=== PATIENT | female | born 1960 | race Caucasian/White ===

== ENCOUNTER 2021-11-28 16:23 | Emergency (ER) | payer MEDICAID, OTHER ==
--- NOTE | 2021-11-28 16:38 | ED Physician Documentation ---
PD HPI CHEST PAIN - Stated complaint Stated Complaint: CHEST PX - Chief complaint Chief Complaint: Cardiac - History obtained from History obtained from: Patient - History of Present Illness Timing - onset: Today, Last night Timing - onset during: Rest, Light activity Timing - duration: Days (1) Timing - details: Gradual onset, Still present, Waxing and waning Quality: Tightness, Aching (not in chest but just right side jaw and shoulder.) Location: Right shoulder/arm, Right neck. No: Substernal Radiation: Neck Improved by: No: Rest Worsened by: No: Exertion (occurring intermittently without exertional provocation.), Inspiration, Eating, Movement Associated symptoms: Shortness of air. No: Nausea, Feeling faint / dizzy, Palpitations Similar symptoms before: Diagnosis (She states symptoms are similar to her heart attack before getting a stent placed 1-1/2 years ago.) Recently seen: Not recently seen (She states she has not had recent visits to her primary care. She is relocating here from [place]. Her previous care was at [facility] there.) Review of Systems Constitutional: denies: Fever, Chills Nose: denies: Rhinorrhea / runny nose, Congestion Throat: denies: Sore throat Cardiac: denies: Palpitations, Pedal edema, Calf pain Respiratory: denies: Dyspnea, Cough GI: denies: Abdominal Pain, Nausea, Vomiting, Diarrhea Neurologic: denies: Generalized weakness, Focal weakness, Numbness, Near syncope PD PAST MEDICAL HISTORY - Past Medical History Cardiovascular: Hypertension, Coronary artery disease (with prior stent couple of years ago. ) Endocrine/Autoimmune: None - Past Surgical History Cardiovascular: Coronary stent - Present Medications Home Medications: Ambulatory Orders Medication Instructions Recorded Confirmed Nitroglycerin [Nitrostat] 0.4 mg SL ONCE PRN #25 tablet 11/28/21 - Allergies Allergies/Adverse Reactions: Allergies Allergy/AdvReac Type Severity Reaction Status Date / Time No Known Drug Allergies Allergy Verified 11/28/21 16:31 - Living Situation Living Arrangement: reports: At home PD ED PE NORMAL - Vitals Vital signs reviewed: Yes - General General: Alert and oriented X 3, No acute distress, Well developed/nourished - Neck Neck: Supple, no meningeal sign, No adenopathy, No JVD - Cardiac Cardiac: RRR, No murmur - Respiratory Respiratory: No respiratory distress, Clear bilaterally, Other (s/p bilateral mastectomy. ) - Derm Derm: Normal color, Warm and dry - Extremities Extremities: No tenderness to palpate, Normal ROM s pain, No edema, No calf tenderness / cord - Neuro Neuro: Alert and oriented X 3, No motor deficit, Normal speech - Psych Psych: No: Normal affect (somewhat anxious about symptoms) Results - Vitals Vitals: Vital Signs - 24 hr 11/28/21 11/28/21 16:27 18:22 Temperature 36.2 C L Heart Rate 79 71 Respiratory 20 18 Rate Blood Pressure 137/78 H 139/84 H O2 Saturation 98 98 Oxygen O2 Source Room air - EKG (time done) 16:25 Rate: Rate (enter#) (73) Rhythm: NSR Meade: Normal Intervals: Normal HI QRS: LVH Ischemia: Normal ST segments. No: ST elevation c/w ischemia, ST depression - Labs Labs: Laboratory Tests 11/28/21 11/28/21 11/28/21 16:58 16:58 16:58 WBC 11.6 H RBC 5.42 H Hgb 15.0 Hct 45.0 MCV 83.0 MCH 27.7 MCHC 33.3 RDW 15.8 H Plt Count 267 MPV 9.9 Neut # (Auto) 8.6 H Lymph # (Auto) 1.9 Norton # (Auto) 0.8 Eos # (Auto) 0.2 Baso # (Auto) 0.1 Absolute Nucleated RBC 0.00 Nucleated RBC % 0.0 PT INR Sodium 135 Potassium 4.0 Chloride 100 L Carbon Dioxide 27 Anion Gap 8.0 BUN 20 Creatinine 0.7 Estimated GFR (MDRD) 85 L Glucose 156 H Calcium 9.6 Magnesium 2.1 Total Bilirubin 0.4 AST 20 ALT 18 Alkaline Phosphatase 72 Troponin I High Sens 11.5 B-Natriuretic Peptide Total Protein 7.7 Albumin 4.2 Globulin 3.5 Albumin/Globulin Ratio 1.2 Lipase 41 11/28/21 11/28/21 16:58 16:58 WBC RBC Hgb Hct MCV MCH MCHC RDW Plt Count MPV Neut # (Auto) Lymph # (Auto) Norton # (Auto) Eos # (Auto) Baso # (Auto) Absolute Nucleated RBC Nucleated RBC % PT 24.2 H INR 2.3 H Sodium Potassium Chloride Carbon Dioxide Anion Gap BUN Creatinine Estimated GFR (MDRD) Glucose Calcium Magnesium Total Bilirubin AST ALT Alkaline Phosphatase Troponin I High Sens B-Natriuretic Peptide 30 Total Protein Albumin Globulin Albumin/Globulin Ratio Lipase - Rads (name of study) chest xray Radiology: Prelim report reviewed (normal), See rad report PD MEDICAL DECISION MAKING - ED course Complexity details: reviewed results, re-evaluated patient (The symptoms were in the side of the neck and shoulder and not the chest. However she states it felt similar to heart pain in the past. She had had symptoms for almost 24 hours and has a negative troponin and EKG. However there was some improvement with nitroglycerin but also some with antacid.), considered differential (Patient with prior heart disease with shoulder and neck aching for the past day. Will assess for PA and heart failure as well as lung problems.), d/w patient ED course: She is relocating to [facility]. She is trying to obtain a local primary care and also does not have local cardiology. She would prefer being able to have appointments here at [facility]. I therefore can give her the name of the [facility] cardiology group that does clinics up here. She is to call for an appointment. Departure - Departure Disposition: Home, Self Care Clinical Impression: Neck pain on right side Condition: Stable Record reviewed to determine appropriate education?: Yes Follow-Up: Rommel Sanchez MD [Provider Admit Priv/Credential] - Prescriptions: Nitroglycerin [Nitrostat] 0.4 mg SL ONCE PRN #25 tablet PRN Reason: Chest Pain Comments: Your EKG and blood tests and chest x-ray are normal. No signs of heart attack or heart failure or lung related causes. Given the duration of your discomfort, I would anticipate some abnormality in these tests if it was heart related. That said we would still consider the idea of angina as a possibility. Continue with your current usual medications. Add nitroglycerin if needed for the chest discomfort. Follow-up with cardiology for further evaluation. I provided the name of one of the local cardiology groups. You do not need to see this specific diving fisher listed but that group does see patients appear in [place]. I sent your prescription to [facility] pharmacy. Return to the ER if persistent or consistent discomfort. Discharge Date/Time: 11/28/21 18:22
[2021-11-28] MEDS ORDERED: MAG HYDROX/AL HYDROX/SIMETH 30 ML UDC PO STA (16:55)
[2021-11-28] MEDS ORDERED: NITROGLYCERIN SL 0.4 MG TABLET SL STA (16:55)
[2021-11-28 17:03] LABS: BASOPHILS # (AUTO) 0.1 10^3/uL (0.0-0.1); BASOPHILS % (AUTO) 0.5 %; EOSINOPHILS # (AUTO) 0.2 10^3/uL (0.0-0.7); EOSINOPHILS % (AUTO) 1.9 %; LYMPHOCYTES # (AUTO) 1.9 10^3/uL (1.5-3.5); LYMPHOCYTES % (AUTO) 16.3 %; MEAN CORPUSCULAR HEMOGLOBIN 27.7 pg (27.0-31.0); MEAN CORPUSCULAR HGB CONC 33.3 g/dL (32.0-36.0); MEAN PLATELET VOLUME 9.9 fL (7.9-10.8); MONOCYTES # (AUTO) 0.8 10^3/uL (0.0-1.0); MONOCYTES % (AUTO) 6.7 %; NEUTROPHILS # (AUTO) 8.6 10^3/uL (1.5-6.6); NEUTROPHILS % (AUTO) 74.2 %; PLT - PLATELET COUNT 267 10^3/uL (130-450); RED BLOOD COUNT 5.42 10^6/uL (4.20-5.40); RED CELL DISTRIBUTION WIDTH 15.8 % (12.0-15.0); WHITE BLOOD COUNT 11.6 x10^3/uL (4.8-10.8)
[2021-11-28 17:10] LABS: INR 2.3 (0.8-1.2); PT - PROTHROMBIN TIME 24.2 secs (9.9-12.6)
[2021-11-28 17:18] LABS: ALBUMIN 4.2 g/dL (3.2-5.5); ALBUMIN/GLOBULIN RATIO 1.2 (1.0-2.2); BILIRUBIN,TOTAL 0.4 mg/dL (0.2-1.0); CALCIUM 9.6 mg/dL (8.5-10.3); CREATININE 0.7 mg/dL (0.4-1.0); MAGNESIUM 2.1 mg/dL (1.7-2.8); TOTAL PROTEIN 7.7 g/dL (6.7-8.2)
--- NOTE | 2021-11-28 17:53 | XRAY Report ---
PROCEDURE: Chest 1 View X-Ray INDICATIONS: Chest pain TECHNIQUE: One view of the chest was acquired. COMPARISON: None FINDINGS: Surgical changes and devices: Tip of the right chest port catheter projects over the right atrium. B ilateral axillary metal clips. Lungs and pleura: No pleural effusions or pneumothorax. Lungs are clear. Mediastinum: Mediastinal contours appear normal. Heart size is normal. Bones and chest wall: No suspicious bony lesions. Overlying soft tissues appear unremarkable. IMPRESSION: No acute cardiopulmonary abnormality. Reviewed by: Jefry Esparza MD on 11/28/2021 5:51 PM PDT Approved by: Jefry Esparza MD on 11/28/2021 5:51 PM PDT Station ID: [id number]
[2021-11-28 18:22] VITALS: BP 139/84
== END 2021-11-28 18:22 | disposition home or self-care (01) ==
LOC: ED 16:23
DX: M54.2 Cervicalgia (principal)
CPT/HCPCS: 36415; 71045; 80053; 83690; 83735; 83880; 84484; 85025; 85610; 93005; 99284; A9270